=== PATIENT | female | born 1990 | race Asian ===

== ENCOUNTER 2019-08-13 07:28 | Outpatient (CLI) | payer OTHER ==
--- NOTE | 2019-08-13 08:15 | ULT ---
Sonogram right upper quadrant HISTORY: Abnormal liver function tests. FINDINGS: Gallbladder has a normal appearance. Common duct is 0.2 cm. Liver unremarkable without focal mass or intrahepatic biliary dilatation. No free fluid. IMPRESSION: Normal exam.
== END 2019-08-13 07:29 | disposition home or self-care (01) ==
LOC: SCSULT 07:28
PROVIDERS: ATTEND Internal Medicine
DX: R74.8 Abnormal levels of other serum enzymes (principal)
CPT/HCPCS: 76705

== ENCOUNTER 2020-10-01 09:59 | Outpatient (CLI) | payer OTHER | END 2020-10-01 10:00 | disposition home or self-care (01) | LOC: BICULT 09:59 | PROVIDERS: ATTEND Internal Medicine | DX: N63.10 Unspecified lump in the right breast, unspecified quadrant (principal) ==